=== PATIENT | female | born 1965 | race Caucasian/White ===

== ENCOUNTER 2025-02-20 08:38 | Outpatient (CLI) | payer MEDICAID, SELFPAY ==
[2025-02-22 02:49] LABS: HPV Source Endocervical; HPV, High Risk by TMA Not Detected
== END 2025-02-20 08:39 | disposition home or self-care (01) ==
PROVIDERS: Visit Provider Nurse Practitioner Family
DX: E78.5 Hyperlipidemia, unspecified (principal); Z12.4 Encounter for screening for malignant neoplasm of cervix; Z11.51 Encounter for screening for human papillomavirus (HPV)
CPT/HCPCS: 80053; 80061; 87624; 87625; 88141; 88142